=== PATIENT | female | born 1970 | race African-American/Black ===

== ENCOUNTER 2016-10-06 11:07 | Day surgery (SDC) | payer OTHER ==
[2016-10-04 13:38] VITALS: BMI 24.1
[2016-10-06] MEDS ORDERED: PROPOFOL 20 ML ONE (11:25)
[2016-10-06 12:00] VITALS: TEMP 98.1
[2016-10-06 12:55] VITALS: BP 109/53; PULSE 66
--- NOTE | 2016-10-11 17:48 | PATH ---
Surgical Pathology Report Patient Name: KAYLIN DE LEON [facility]. Rec. #: [id number] /Age/Gender: 1970 (Age: 46) / F Account: [id number] Location: [facility]OS[facility] Taken: 10/06/2016 Received: 10/06/2016 Reported: 10/11/2016 Physicians: Kayla Harden M.D. Specimen(s) Received A: SECOND PORTION DUODENUM B: BX ANTRUM C: BX GE JUNCTION Clinical History GERD Rule out celiac disease, gastritis Final Diagnosis A. SECOND PORTION DUODENUM, BIOPSY: DUODENAL MUCOSA WITH NO PATHOLOGIC FINDINGS. Note: Features suggestive of celiac disease are not identified in this biopsy. B. ANTRUM, BIOPSY: MILD CHRONIC GASTRITIS. IMMUNOSTAIN IS NEGATIVE FOR H. PYLORI ORGANISMS. C. GE JUNCTION, BIOPSY: ESOPHAGOGASTRIC JUNCTIONAL MUCOSA WITH MILD CHRONIC INFLAMMATION. NO INTESTINAL METAPLASIA IS IDENTIFIED. Electronically Signed Harriet Thomas M.D. Gross Description A. Received in formalin, labeled "second portion duodenum" are 2 carranza, irregular portions of soft tissue measuring 0.3 cm. in greatest dimension. The specimens are submitted in toto in one cassette. B. Received in formalin, labeled "antrum" is a carranza, irregular portion of soft tissue measuring 0.3 cm. in greatest dimension. The specimen is submitted in toto in one cassette. C. Received in formalin, labeled "GE junction" is a carranza, irregular portion of soft tissue measuring 0.3 cm. in greatest dimension. The specimen is submitted in toto in one cassette. [facility]/10/06/2016 [facility]/10/06/2016
== END 2016-10-06 12:50 | disposition home or self-care (01) ==
LOC: FASU-ENDO 11:07
PROVIDERS: ATTEND Internal Medicine Gastroenterology
PROC: 0DB48ZX Excision of Esophagogastric Junction, Via Natural or Artificial Opening Endoscopic, Diagnostic (ICD-10-PCS; 2016-10-06)
PROC: 0DB98ZX Excision of Duodenum, Via Natural or Artificial Opening Endoscopic, Diagnostic (ICD-10-PCS; principal; 2016-10-06 12:06)
PROC: 0DB68ZX Excision of Stomach, Via Natural or Artificial Opening Endoscopic, Diagnostic (ICD-10-PCS; 2016-10-06 12:06)
DX: K29.50 Unspecified chronic gastritis without bleeding (principal); K20.9 Esophagitis, unspecified
CPT/HCPCS: 84703; 88305-TC; 88342-TC

== ENCOUNTER 2018-12-13 11:20 | Day surgery (SDC) | payer BC, OTHER ==
[2018-12-01 14:40] VITALS: BMI 26.4
[2018-12-13] MEDS ORDERED: PROPOFOL 20 ML ONE ×4 (12:51)
[2018-12-13 14:11] VITALS: TEMP 97.4
[2018-12-13 14:35] VITALS: BP 101/64
[2018-12-13 14:43] VITALS: PULSE 74
--- NOTE | 2018-12-18 12:11 | PATH ---
Surgical Pathology Report Patient Name: KAYLIN DE LEON [facility]. Rec. #: [id number] /Age/Gender: 1970 (Age: 48) / F Account: [id number] Location: [facility] Taken: 12/13/2018 Received: 12/13/2018 Reported: 12/18/2018 Physicians: Kayla Harden M.D. Specimen(s) Received A: BX RIGHT COLON AND CECUM B: BX TRANSVERSE COLON C: BX DESCENDING COLON D: BX RECTUM Clinical History Screening. Postoperative diagnosis: Melanosis, diverticulosis Final Diagnosis A. RIGHT COLON AND CECUM, BIOPSY: COLONIC MUCOSA SHOWING MELANOSIS COLI. B. TRANSVERSE COLON, BIOPSY: COLONIC MUCOSA SHOWING MELANOSIS COLI AND BENIGN/REACTIVE LYMPHOID AGGREGATE. C. DESCENDING COLON, BIOPSY: COLONIC MUCOSA SHOWING MELANOSIS COLI. D. RECTUM, BIOPSY: COLONIC/RECTAL MUCOSA SHOWING MELANOSIS COLI. Electronically Signed Harriet Thomas M.D. Gross Description A. Received in formalin, labeled "right colon and cecum" is a dark carranza, irregular portion of soft tissue measuring 0.2 cm. in greatest dimension. The specimen is submitted in toto in one cassette. B. Received in formalin, labeled "transverse colon" is a brown carranza, irregular portion of soft tissue measuring 0.2 cm. in greatest dimension. The specimen is submitted in toto in one cassette. C. Received in formalin, labeled "descending colon" is a brown carranza, irregular portion of soft tissue measuring 0.3 cm. in greatest dimension. The specimen is submitted in toto in one cassette. D. Received in formalin, labeled "rectum" is a brown carranza, irregular portion of soft tissue measuring 0.3 cm. in greatest dimension. The specimen is submitted in toto in one cassette. [facility]/12/14/2018 [facility]/12/14/2018
== END 2018-12-13 14:42 | disposition home or self-care (01) ==
LOC: FASU-ENDO 11:20
PROVIDERS: ATTEND Internal Medicine Gastroenterology
PROC: 0DBL8ZX Excision of Transverse Colon, Via Natural or Artificial Opening Endoscopic, Diagnostic (ICD-10-PCS; 2018-12-13)
PROC: 0DBP8ZX Excision of Rectum, Via Natural or Artificial Opening Endoscopic, Diagnostic (ICD-10-PCS; 2018-12-13)
PROC: 0DBM8ZX Excision of Descending Colon, Via Natural or Artificial Opening Endoscopic, Diagnostic (ICD-10-PCS; 2018-12-13)
PROC: 0DBK8ZX Excision of Ascending Colon, Via Natural or Artificial Opening Endoscopic, Diagnostic (ICD-10-PCS; principal; 2018-12-13 13:27)
DX: Z12.11 Encounter for screening for malignant neoplasm of colon (principal); K64.8 Other hemorrhoids; K63.89 Other specified diseases of intestine
CPT/HCPCS: 84703; 88305-TC; 88309-TC

== ENCOUNTER 2019-01-17 11:46 | Day surgery (SDC) | payer BC ==
[2019-01-16 10:53] VITALS: BMI 25.7
[2019-01-17 15:50] VITALS: TEMP 97.4
[2019-01-17 16:07] VITALS: BP 110/69; PULSE 66
--- NOTE | 2019-01-22 14:17 | PATH ---
Surgical Pathology Report Patient Name: KAYLIN DE LEON [facility]. Rec. #: [id number] /Age/Gender: 1970 (Age: 48) / F Account: [id number] Location: [facility] Taken: 01/17/2019 Received: 01/17/2019 Reported: 01/22/2019 Physicians: Kayla Harden M.D. Specimen(s) Received A: SECOND PORTION OF DUODENUM B: ANTRUM C: GE JUNCTION Clinical History Celiac Postoperative diagnosis: Gastritis Final Diagnosis A. SECOND PORTION OF DUODENUM, BIOPSY: DUODENAL MUCOSA WITH NO PATHOLOGIC FINDINGS. B. GASTRIC ANTRUM, BIOPSY: MILD CHRONIC GASTRITIS. IMMUNOSTAIN IS NEGATIVE FOR H. PYLORI ORGANISMS. C. GE JUNCTION, BIOPSY: ESOPHAGEAL (SQUAMOUS) MUCOSA WITH NO PATHOLOGIC FINDINGS. NO COLUMNAR EPITHELIUM/INTESTINAL METAPLASIA IS IDENTIFIED. Electronically Signed Harriet Thomas M.D. Gross Description A. Received in formalin, labeled "biopsy second portion of duodenum" are 2 carranza, irregular portions of soft tissue averaging 0.2 cm. in greatest dimension. The specimens are submitted in toto in one cassette. B. Received in formalin, labeled "biopsy gastric antrum" is a carranza, irregular portion of soft tissue measuring 0.3 cm. in greatest dimension. The specimen is submitted in toto in one cassette. C. Received in formalin, labeled "biopsy GE junction" are 2 carranza, irregular portions of soft tissue averaging 0.2 cm. in greatest dimension. The specimens are submitted in toto in one cassette. 01/18/2019 saudi01/18/2019
== END 2019-01-17 14:50 | disposition home or self-care (01) ==
LOC: FASU-ENDO 11:46
PROVIDERS: ATTEND Internal Medicine Gastroenterology
PROC: 0DB68ZX Excision of Stomach, Via Natural or Artificial Opening Endoscopic, Diagnostic (ICD-10-PCS; 2019-01-17)
PROC: 0DB48ZX Excision of Esophagogastric Junction, Via Natural or Artificial Opening Endoscopic, Diagnostic (ICD-10-PCS; 2019-01-17)
PROC: 0DB98ZX Excision of Duodenum, Via Natural or Artificial Opening Endoscopic, Diagnostic (ICD-10-PCS; principal; 2019-01-17 12:57)
DX: K29.50 Unspecified chronic gastritis without bleeding (principal); R10.13 Epigastric pain
CPT/HCPCS: 84703; 88305-TC; 88342-TC

== ENCOUNTER 2019-12-07 04:40 | Day surgery (SDC) | payer BC ==
[2019-12-05 14:34] VITALS: BMI 25.0
[2019-12-07] MEDS ORDERED: BUPIVACAINE HCL/PF 0.5% (5 MG/ML) 30 ML VIAL IJ ONE (14:01)
[2019-12-07] MEDS ORDERED: IOHEXOL 180 MG/1 ML ML IJ ONE (14:01)
[2019-12-07] MEDS ORDERED: TRIAMCINOLONE ACET 40MG/1ML VIAL ONE (14:38)
[2019-12-07] MEDS ORDERED: DEXAMETHASONE SOD PHOSPHATE/PF 10 MG/ML SDV ONE (14:38)
[2019-12-07] MEDS ORDERED: LIDOCAINE HCL/PF 1% SDV 5ML VIAL ONE (14:39)
[2019-12-07] MEDS ORDERED: BUPIVACAINE HCL/PF 0.75% 10 ML VIAL ONE (14:39)
[2019-12-07 15:37] VITALS: BP 100/59; PULSE 85; TEMP 98
--- NOTE | 2019-12-10 21:50 | PROC ---
Procedure Note Procedure: Pre procedure Diagnosis: Cervical Spondylosis Post Procedure Diagnosis: same Anesthesia: local Procedure Performed: Right and Left C3 C4 C5 medial branch block under fluorocopic guidance After the risks and benefits were explained, informed consent was obtained. The patient was then taken to the procedure room and positioned prone on the procedure table. Time out was performed. The region overlying the appropriate vertebral bodies was identified using fluoroscopy. The skin was prepped and draped in the usual sterile fashion. Using fluoroscopic guidance, 25 gauge 2.5 inch spinal needles were then introduced to the fossa at the center of the waists of the articular pillars where the BILATERAL C3, C4, and C5 medial branches are located. Omnipaque 180 confirmed appropriate needle placement. There was no epidural or vascular flow observed. .25 % bupivacaine was drawn into a syringe. 0.5cc of this solution was then injected at each level. The same procedure was repeated on the LEFT side at the same levels. The patient tolerated the procedure well and there were no complications. The patient was taken to the post procedure recovery area in good condition. Vital signs remained stable before, during, and after the procedure. The patient was given oral and written follow-up instructions. The patient was given a follow up appointment with me in the near future. Geovany Muse DO
== END 2019-12-07 15:33 | disposition home or self-care (01) ==
LOC: JASU-SURG 04:40
PROVIDERS: ATTEND Pain Medicine Pain Medicine
PROC: 3E0T33Z Introduction of Anti-inflammatory into Peripheral Nerves and Plexi, Percutaneous Approach (ICD-10-PCS; 2019-12-07)
PROC: 3E0T3BZ Introduction of Anesthetic Agent into Peripheral Nerves and Plexi, Percutaneous Approach (ICD-10-PCS; principal; 2019-12-07 14:00)
DX: M47.812 Spondylosis without myelopathy or radiculopathy, cervical region (principal)
CPT/HCPCS: 76000-TC-FY; 84703

== ENCOUNTER 2020-12-04 04:47 | Day surgery (SDC) | payer OTHER ==
[2020-12-02 17:04] VITALS: BMI 26.6
[2020-12-04 15:02] VITALS: BP 113/68; PULSE 68; TEMP 97.8
== END 2020-12-04 15:14 | disposition home or self-care (01) ==
LOC: JASU-ENDO 04:47
PROVIDERS: ATTEND Internal Medicine Gastroenterology
PROC: 0DB78ZX Excision of Stomach, Pylorus, Via Natural or Artificial Opening Endoscopic, Diagnostic (ICD-10-PCS; 2020-12-04)
PROC: 0DB28ZX Excision of Middle Esophagus, Via Natural or Artificial Opening Endoscopic, Diagnostic (ICD-10-PCS; 2020-12-04)
PROC: 0DB38ZX Excision of Lower Esophagus, Via Natural or Artificial Opening Endoscopic, Diagnostic (ICD-10-PCS; 2020-12-04)
PROC: 0DB98ZX Excision of Duodenum, Via Natural or Artificial Opening Endoscopic, Diagnostic (ICD-10-PCS; principal; 2020-12-04 13:15)
DX: K29.50 Unspecified chronic gastritis without bleeding (principal); K21.00 Gastro-esophageal reflux disease with esophagitis, without bleeding; Z87.19 Personal history of other diseases of the digestive system; K31.7 Polyp of stomach and duodenum
CPT/HCPCS: 81025; 88305-TC; 88342-TC

== ENCOUNTER 2022-06-09 10:35 | Day surgery (SDC) | payer OTHER ==
[2022-06-08 12:03] VITALS: BMI 29.9
[2022-06-09 12:40] VITALS: TEMP 98
[2022-06-09 13:03] VITALS: RESP 18
[2022-06-09 13:04] VITALS: BP 110/67; PULSE 80
== END 2022-06-09 13:42 | disposition home or self-care (01) ==
LOC: FASU-ENDO 10:35
PROVIDERS: ATTEND Internal Medicine Gastroenterology
PROC: 0DJD8ZZ Inspection of Lower Intestinal Tract, Via Natural or Artificial Opening Endoscopic (ICD-10-PCS; principal; 2022-06-09 12:19)
DX: Z12.11 Encounter for screening for malignant neoplasm of colon (principal); K64.8 Other hemorrhoids; K64.4 Residual hemorrhoidal skin tags
CPT/HCPCS: 84703

== ENCOUNTER 2022-12-15 10:21 | Day surgery (SDC) | payer OTHER ==
[2022-12-09 12:11] VITALS: BMI 29.9
[2022-12-15 11:34] VITALS: RESP 18
[2022-12-15 12:37] VITALS: TEMP 97.5
[2022-12-15 12:51] VITALS: BP 107/62; PULSE 85
== END 2022-12-15 13:06 | disposition home or self-care (01) ==
LOC: FASU-ENDO 10:21
PROVIDERS: ATTEND Internal Medicine Gastroenterology
PROC: 0DB68ZX Excision of Stomach, Via Natural or Artificial Opening Endoscopic, Diagnostic (ICD-10-PCS; 2022-12-15)
PROC: 0DB48ZX Excision of Esophagogastric Junction, Via Natural or Artificial Opening Endoscopic, Diagnostic (ICD-10-PCS; 2022-12-15)
PROC: 0DB98ZX Excision of Duodenum, Via Natural or Artificial Opening Endoscopic, Diagnostic (ICD-10-PCS; principal; 2022-12-15 12:08)
DX: K29.50 Unspecified chronic gastritis without bleeding (principal); K21.00 Gastro-esophageal reflux disease with esophagitis, without bleeding; R10.13 Epigastric pain
CPT/HCPCS: 81025